=== PATIENT | male | born 1960 | race Caucasian/White ===

== ENCOUNTER 2021-06-11 09:13 | Inpatient (IN) | payer MEDICARE, OTHER ==
[~2021-06-11] VITALS: Ht 177.8 cm; Wt 94.2 kg
--- NOTE | 2021-06-11 09:18 | PHYS DOC ---
Past History Past Medical History: CAD, CHF, CVA, Diabetes, GERD Adult General Chief Complaint Chief Complaint: SHORTNESS OF BREATH HPI HPI Patient is a 60-year-old male presenting via EMS for shortness of breath and lethargy. Onset of symptoms was approximately 72 hours prior without any known inciting event, trauma, ingestion, sick contact or other exposure. Nothing known makes better or worse. Patient denies being in any pain. Patient reports he has just been more short of breath than usual, weak and fatigued. Symptoms have been constant since onset. Patient was found to be at 88% on room air by assisted staff which concerned them and so, they called EMS. On arrival, patient was found to be hemodynamically stable with 2 L oxygen via nasal cannula in place keeping O2 saturations greater than 90%. On arrival to our facility, patient reports he is weak but denies any fever, headache, vision changes, chest pain, ripping or tearing sensation in chest, abdominal pain, changes in motor or sensory or neuro function. He admits he is unvaccinated against COVID-19. He is at assisted for femur fracture that was diagnosed late 2019. He is on warfarin therapy for atrial fibrillation Review of Systems Review of Systems Fourteen body systems of review of systems have been reviewed. See HPI for pertinent positives and negative responses, other morgan all other systems are negative, non-pertinent or non-contributory Physical Exam Physical Exam Constitutional: Well developed, well nourished, no acute distress, non-toxic appearance. Does appear tired HENT: Normocephalic, atraumatic, bilateral external ears normal, oropharynx moist, no oral exudates, nose normal. Nasal cannula in place Eyes: PERRLA, EOMI, conjunctiva normal, no discharge. Neck: Normal range of motion, no tenderness, supple, no stridor. Cardiovascular: Heart rate regular, sinus rhythm, no murmurs rubs or gallops Lungs & Thorax: No overt respiratory distress but patient does have end expirato ry wheezes globally and rales present in bilateral lung bases Abdomen: Bowel sounds normal, soft, no tenderness, no masses, no pulsatile masses. Nonsurgical abdomen, no peritoneal signs Skin: Warm, dry, no erythema, no rash. Back: No tenderness, no CVA tenderness. Extremities: No tenderness, no cyanosis, no clubbing, ROM intact, no edema. Neurologic: Alert and oriented X 3, grossly normal motor & sensory function, no focal deficits noted. Psychologic: Affect normal, judgement normal, mood normal. Current Patient Data Vital Signs Vital Signs Date Time Temp Pulse Resp B/P (MAP) Pulse Ox O2 Delivery O2 Flow Rate FiO2 06/11/21 09:21 97.5 89 16 108/63 (78) 90 Room Air Vital Signs Date Time Temp Pulse Resp B/P (MAP) Pulse Ox O2 Delivery O2 Flow Rate FiO2 06/11/21 09:21 97.5 89 16 108/63 (78) 90 Room Air Lab Results Laboratory Tests Test 06/11/21 09:48 06/11/21 10:06 06/11/21 20:19 White Blood Count 10.2 x10^3/uL Red Blood Count 3.77 x10^6/uL Hemoglobin 9.3 g/dL Hematocrit 30.0 % Mean Corpuscular Volume 80 fL Mean Corpuscular Hemoglobin 25 pg Mean Corpuscular Hemoglobin Concent 31 g/dL Red Cell Distribution Width 17.3 % Platelet Count 321 x10^3/uL Neutrophils (%) (Auto) 80 % Lymphocytes (%) (Auto) 10 % Monocytes (%) (Auto) 7 % Eosinophils (%) (Auto) 2 % Basophils (%) (Auto) 1 % Neutrophils # (Auto) 8.2 x10^3uL Lymphocytes # (Auto) 1.0 x10^3/uL Monocytes # (Auto) 0.7 x10^3/uL Eosinophils # (Auto) 0.2 x10^3/uL Basophils # (Auto) 0.1 x10^3/uL Prothrombin Time 21.1 SEC Prothromb Time International Ratio 2.0 Activated Partial Thromboplast Time 38 SEC Sodium Level 137 mmol/L Potassium Level 4.5 mmol/L Chloride Level 101 mmol/L Carbon Dioxide Level 30 mmol/L Anion Gap 6 Blood Urea Nitrogen 24 mg/dL Creatinine 0.9 mg/dL Estimated GFR (Cockcroft-Gault) 86.1 Glucose Level 161 mg/dL Lactic Acid Level 1.8 mmol/L Calcium Level 8.8 mg/dL Troponin I Quantitative 0.068 ng/mL HW-Vvo-G-Type Natriuretic Peptide 1932 pg/mL Coronavirus (COVID-19)(PCR) Not detected Influenza Type A (Rapid) Negative Influenza Type B (Rapid) Negative SARS-CoV-2 Antigen (Rapid) Negative Glucose (Fingerstick) 176 mg/dL Current Medications Medications (Trade) Dose Ordered Sig/Kaleigh Route PRN Reason Start Time Stop Time Status Last Admin Dose Admin Albuterol/ Ipratropium (Duoneb) 3 ml 1X ONCE NEB 06/11/21 09:30 06/11/21 09:37 DC 06/11/21 09:56 Furosemide (Lasix) 40 mg 1X ONCE IVP 06/11/21 09:45 06/11/21 09:46 DC 06/11/21 09:55 Aspirin (Aspirin Chewable) 162 mg 1X ONCE PO 06/11/21 09:45 06/11/21 09:46 DC 06/11/21 09:56 Nitroglycerin (Nitrostat) 0.4 mg PRN Q5MIN PRN SL CHEST PAIN 06/11/21 09:45 06/11/21 14:23 DC EKG EKG EKG ordered and interpreted by myself at 0954 hrs. is sinus rhythm at 90 bpm, prolonged MD interval at 256 and QTC at 469, unremarkable intervals, no acute ischemic findings, no STEMI Radiology/Procedures Radiology/Procedures XR CHEST 1V History: Reason: shob / Spl. Instructions: / History: Comparison: None. Findings: Mild interstitial thickening with ill-defined opacities. Small left pleural effusion. Enlarged chronic size. Prior median sternotomy. No pneumothorax. Impression: 1. Mild interstitial thickening with ill-defined opacities, may represent pulmo nary edema or infection. 2. Small left pleural effusion. Electronically signed by: Emery Caro DO (06/11/2021 9:56 AM) [id number] Heart Score C/O Chest Pain: No HEART Score for Chest Pain: HEART Score for Chest Pain Response (Comments) Value History Moderately Suspicious 1 ECG Nonspecific Repolarizatio 1 Age >45 - < 65 1 Risk Factors >3 Risk Factors or Hx CAD 2 Total 5 Risk Factors: Risk Factors: DM, Current or recent (<one month) smoker, HTN, HLP, family history of CAD, obesity. Risk Scores: Risk Factors: DM, Current or recent (<one month) smoker, HTN, HLP, family history of CAD, obesity. Course & Med Decision Making Course & Med Decision Making Airway patent, breathing unlabored, IV access and vitals obtained concerning for hypoxia on room air History physical exam and comprehensive ER work-up concerning for acute exacerbation of CHF in a patient with heart failure reduced ejection fraction and last known EF 25% Patient symptoms improved with a total of 80 mg IV Lasix, sublingual nitro and repositioning in addition to supplemental nasal cannula oxygen Patient not fit for discharge back home, he agrees. I contacted hospitalist [facility] who accepted patient under his care for continued diuresis and cardiology consultation I have updated patient on discussion above and need for hospitalization and he was amenable. All questions and concerns addressed prior to hospitalization. Patient confirms he is full code which is consistent with assisted do cumentation Dragon Disclaimer Dragon Disclaimer This electronic medical record was generated, in whole or in part, using a voice recognition dictation system. Departure Departure: Impression: Primary Impression: Acute on chronic HFrEF (heart failure with reduced ejection fraction) Additional Impressions: Elevated troponin Acute respiratory failure with hypoxia Disposition: ADMITTED INPATIENT Admitting Physician: Brayden Mendoza Condition: STABLE Problem Qualifiers JESUS GORDON DO Jun 11, 2021 09:18
[2021-06-11] MEDS ORDERED: IPRATRPIUM/ALBUTEROL 0.5/2.5MG 3 ML NEBU. NEB ONE (09:30)
[2021-06-11] MEDS ORDERED: FUROSEMIDE 40 MG/4 ML VIAL IVP ONE ×2 (09:45→11:00)
[2021-06-11] MEDS ORDERED: NITROGLYCERIN SUBLINGUAL 0.4 MG BOTTLE OF 25. SL PRN ×2 (09:45→11:00)
[2021-06-11] MEDS ORDERED: ASPIRIN CHEWABLE 81 MG TABLET. PO ONE (09:45)
--- NOTE | 2021-06-11 09:58 | RAD ---
XR CHEST 1V History: Reason: shob / Spl. Instructions: / History: Comparison: None. Findings: Mild interstitial thickening with ill-defined opacities. Small left pleural effusion. Enlarged chroni c size. Prior median sternotomy. No pneumothorax. Impression: 1. Mild interstitial thickening with ill-defined opacities, may represent pulmonary edema or infecti on. 2. Small left pleural effusion. Electronically signed by: Emery Caro DO (06/11/2021 9:56 AM) [id number]
[2021-06-11 10:05] LABS: BASO # 0.1 x10^3/uL (0.0-0.2); BASO % 1 % (0-3); EOS # 0.2 x10^3/uL (0.0-0.7); EOS % 2 % (0-3); HEMOGLOBIN 9.3 g/dL (13.0-17.5); LYMPH % 10 % (24-48); MEAN CORPUSCULAR HEMOGLOBIN 25 pg (25-35); MEAN CORPUSCULAR HGB CONC 31 g/dL (31-37); MEAN CORPUSCULAR VOLUME 80 fL (79-100); MONO # 0.7 x10^3/uL (0.0-1.1); MONO % 7 % (0-9); NEUT # 8.2 x10^3uL (1.8-7.7); NEUT % 80 % (31-73); PLATELET COUNT 321 x10^3/uL (140-400); RED BLOOD COUNT 3.77 x10^6/uL (4.30-5.70); RED CELL DISTRIBUTION WIDTH 17.3 % (11.5-14.5); WHITE BLOOD COUNT 10.2 x10^3/uL (4.0-11.0)
[2021-06-11 10:16] LABS: CALCIUM 8.8 mg/dL (8.5-10.1); CREATININE 0.9 mg/dL (0.7-1.3); GFR 86.1; POTASSIUM 4.5 mmol/L (3.5-5.1)
--- NOTE | 2021-06-11 10:19 | EKG ---
[address] [address] Test Date: 2021-06-11 Test Time: 09:42:43 Pat Name: TAZ MADRID Department: Room: Gender: M [employer] Tech: KALEN : 1960 Requested By: JESUS GORDON Order Number: [id number] Reading MD: Baldomero Doss MD Measurements Intervals [place] Rate: 90 P: 42 DC: 256 QRS: 59 QRSD: 130 T: -18 QT: 380 QTc: 469 Interpretive Statements SINUS RHYTHM PROLONGED DC INTERVAL Electronically Signed On 06-11-2021 17:28:44 CDT by Baldomero Doss MD
[2021-06-11] MEDS ORDERED: ACETAMINOPHEN 325 MG TABLET PO PRN (11:00)
[2021-06-11 11:22] LABS: INFLUENZA A PATIENT NEGATIVE (NEGATIVE); INFLUENZA B PATIENT NEGATIVE (NEGATIVE)
--- NOTE | 2021-06-11 11:39 | HP ---
DATE OF SERVICE: 06/11/2021 ADMIT DATE: 06/11/2021 ATTENDING PHYSICIAN: Dr. Mendoza. CHIEF COMPLAINT: Shortness of breath. HISTORY OF PRESENT ILLNESS: The patient is a 60-year-old gentleman who is a current resident of a local [facility]. He has a 3-day history of increasing shortness of breath, lethargy, dyspnea with exertion and orthopnea, more short of breath than usual. He continues to smoke at the f[facility]. He had saturation 88%. EMS was called. On arrival to the ED, oxygen saturation improved with supplemental O2. Chest x-ray demonstrated cardiomegaly along with vascular congestion, Alice B lines and volume overload. He is unvaccinated against COVID-19. He had a femur fracture. He was diagnosed in late 2019. He is on warfarin therapy for permanent atrial fibrillation. PAST MEDICAL HISTORY: Significant for coronary artery disease with several-vessel bypass and graft in 2011. He has diabetes, gastroesophageal reflux disease and paroxysmal atrial fibrillation. CURRENT MEDICATIONS: Reviewed. He is on Coumadin and insulin. He is not on a diuretic. I am in the process of ascertaining the dosages of medications through the pharmacy. ALLERGIES: HE HAS ALLERGIES TO ADHESIVE TAPE, BACITRACIN, CIPRO, NEOMYCIN, POLYMYXIN, EXACT REACTION IS UNCLEAR. SOCIAL HISTORY: He is a smoker. He does not drink alcohol. FAMILY HISTORY: Noncontributory. REVIEW OF SYSTEMS: Significant for the orthopnea. No COVID exposure. Once again he is unvaccinated. He continues to smoke a pack of cigarettes a day despite admonition. All other systems reviewed and turned to be negative. PHYSICAL EXAMINATION: GENERAL: When I saw him, this is a pleasant, middle-aged gentleman. VITAL SIGNS: Initial vital signs in the ED showed a blood pressure 122/67, pulse is 92 and regular. He is afebrile. Oxygen saturation 97% on room air. HEENT: Head is without trauma. Pupils are reactive. Sclerae nonicteric. The oropharynx is clear. NECK: Supple. No bruits identified. LUNGS: Bibasilar rales. CARDIOVASCULAR: Showed regular heart tones. No gallops. ABDOMEN: Soft. EXTREMITIES: Show 2+ pitting edema extending all the way up to his thighs. NEUROLOGIC: Focally intact. Speech is fluent. He has no focal deficits. SKIN: Warm and dry. PERTINENT LABORATORY AND X-RAY STUDIES: Chest x-ray demonstrated postoperative changes, interstitial thickening, ill-defined opacities representing pulmonary edema. There is cardiomegaly and there is presence of Alice B lines. Admission hemoglobin was 9.3 g/dL with a white count of 10,200. Chemistry panel: Sodium 137 mEq, nonfasting blood sugar 161. The first troponin was 0.06. BNP was 1900. INR was therapeutic at 2.0. ASSESSMENT: 1. A 60-year-old gentleman with [id number] congestive heart failure. 2. History of known coronary artery disease. 3. Ischemic cardiomyopathy. 4. Paroxysmal atrial fibrillation. 5. Slight elevation of troponins due to stress demand ischemia. 6. Chronic anticoagulation. 7. Chronic obstructive pulmonary disease. 8. Type 2 diabetes. 9. Continued tobacco addiction. PLAN: 1. Admit to the Telemetry Unit. 2. Diuresis. Lasix has been ordered b.i.d. I estimate about 20 pounds of excess fluid. 3. Serial chemistries. 4. Daily weights. 5. Fluid restriction. 6. Glucose control. 7. Continue Coumadin as ordered. 8. Follow up troponin level in the morning. BALTA/ROSEMARY DR: Amadeo TID: [id number]
[2021-06-11 14:33] VITALS: BP 117/72
[2021-06-11] MEDS ORDERED: AMIT50TA PO (15:56)
[2021-06-11] MEDS ORDERED: ASPI-889 PO (15:56)
[2021-06-11] MEDS ORDERED: FUROSEMIDE 100 MG/10 ML VIAL IVP ONE (16:00)
[2021-06-11] MEDS ORDERED: PREG300C PO (17:15)
[2021-06-11] MEDS ORDERED: MIDO5TAB4 PO (17:15)
[2021-06-11] MEDS ORDERED: ASCO500C PO (17:15)
[2021-06-11] MEDS ORDERED: CYCL5TAB PO (17:15)
[2021-06-11] MEDS ORDERED: INSU100V SQ (17:15)
[2021-06-11] MEDS ORDERED: DULO60CA7 PO (17:15)
[2021-06-11] MEDS ORDERED: WARF3TAB50 PO (17:15)
[2021-06-11] MEDS ORDERED: DULA3PEN SQ (17:15)
[2021-06-11] MEDS ORDERED: WARF-31 PO (17:15)
[2021-06-11] MEDS ORDERED: OMEP40CA7 PO (17:15)
[2021-06-11] MEDS ORDERED: LIPITOR80 MG PO (17:15)
[2021-06-11] MEDS ORDERED: INSU200I4 SQ (17:15)
[2021-06-11] MEDS ORDERED: DEXT38GE2 PO (17:15)
[2021-06-11] MEDS ORDERED: AMIN30LI2 PO (17:15)
[2021-06-11] MEDS ORDERED: FERR-36 PO (17:15)
[2021-06-11] MEDS ORDERED: METO25TA2 PO (17:15)
[2021-06-11] MEDS ORDERED: CANA300T PO (17:15)
[2021-06-11] MEDS ORDERED: OXYC5TAB88 PO (17:15)
[2021-06-11] MEDS ORDERED: MELA3TAB4 PO (17:15)
[2021-06-11] MEDS ORDERED: ISOS30TA19 PO (17:15)
[2021-06-11 19:00] VITALS: BP 130/76
[2021-06-11] MEDS ORDERED: CYCLOBENZAPRINE 10 MG TABLET. PO PRN (20:30)
[2021-06-11] MEDS: METOPROLOL SUCC 24HR ER 25 MG TAB.ER.24H. PO SCH (20:46)
[2021-06-11] MEDS: POTASSIUM CHLORIDE 20 MEQ TABLET.ER. PO SCH (20:47)
[2021-06-11] MEDS: ATORVASTATIN CALCIUM 20 MG TABLET PO SCH (20:47)
[2021-06-11] MEDS: MELATONIN 3 MG TABLET PO SCH (20:47)
[2021-06-11] MEDS: DULoxetine HCL 60 MG CAPSULE.DR PO SCH (20:47)
[2021-06-11] MEDS: PREGABALIN 75 MG CAPSULE PO SCH (20:47)
[2021-06-11] MEDS ORDERED: NON FORMULARY ITEM (Amino Acids/Protein Hydrolys (Pro-Stat Liquid) 30 ML) PO SCH (21:00)
[2021-06-11] MEDS: oxyCODONE IR 5 MG TABLET PO PRN (22:56)
[2021-06-11 23:00] VITALS: BP 101/62
[2021-06-11 23:46] VITALS: BP 104/65
[2021-06-12 05:00] VITALS: BP 123/74
[2021-06-12 07:22] LABS: CALCIUM 9.1 mg/dL (8.5-10.1); CREATININE 0.9 mg/dL (0.7-1.3); GFR 86.1; POTASSIUM 4.2 mmol/L (3.5-5.1)
[2021-06-12] MEDS: INSULIN LISPRO 300 UNITS/3 ML VIAL. SQ SCH ×3 (08:00→17:00)
--- NOTE | 2021-06-12 08:20 | PN ---
DATE: 06/12/2021 ATTENDING PHYSICIAN: Dr. Mendoza. SUBJECTIVE: Breathing better. No new complaints. He denied any chest pain or palpitations. OBJECTIVE FINDINGS: VITAL SIGNS: Blood pressure this morning is 123/74, pulse is 90 and regular, oxygen saturation 97% on 3 liters. He is afebrile. HEENT: Head is without trauma. Pupils are reactive. Sclerae nonicteric. Oropharynx clear. NECK: Supple. Venous pressure distended at 45 degrees. LUNGS: Bibasilar crackles persist. CARDIOVASCULAR: Showed regular heart tones. No gallops. ABDOMEN: Soft. EXTREMITIES: Still show 2+ edema. NEUROLOGIC: Function focally intact. LABORATORY DATA: Pertinent laboratory studies, his serology was negative for coronavirus. Creatinine this morning is 0.9 mg/dL, potassium is 4.2 mEq. Cardiac enzymes, slight elevation of troponin due to stress demand ischemia. It was measured at 0.07. Nonfasting blood sugar 123 mg/dL. ASSESSMENT: 1. A 60-year-old gentleman with acute on chronic systolic congestive heart failure. 2. Ischemic cardiomyopathy. 3. Known coronary artery disease. 4. Paroxysmal atrial fibrillation. 5. Slight elevation of troponin due to stress demand ischemia. 6. Chronic anticoagulation. 7. Chronic obstructive pulmonary disease. 8. Type 2 diabetes. 9. Continued tobacco abuse. PLAN: 1. Continue diuresis. Lasix 80 mg twice a day. 2. Daily weights. 3. Fluid restriction. 4. Serial chemistries. 5. Glucose control. 6. Continue Coumadin as prescribed. DEDE DR: Amadeo TID: [id number] CC: Dr. Madelaine Grubbs
[2021-06-12] MEDS: ISOSORBIDE DINITRATE 10 MG TABLET. PO SCH (08:35)
[2021-06-12] MEDS: FERROUS SULFATE 325 MG TABLET. PO SCH (08:38)
[2021-06-12] MEDS: PANTOPRAZOLE 40 MG TABLET. PO SCH (08:38)
[2021-06-12] MEDS: FUROSEMIDE 40 MG/4 ML VIAL IVP SCH ×2 (08:38→14:59)
[2021-06-12] MEDS: PREGABALIN 75 MG CAPSULE PO SCH ×2 (08:40→20:02)
[2021-06-12] MEDS: ASCORBIC ACID 500 MG TABLET PO SCH (08:40)
[2021-06-12] MEDS: METOPROLOL SUCC 24HR ER 25 MG TAB.ER.24H. PO SCH ×2 (08:40→20:02)
[2021-06-12] MEDS: oxyCODONE IR 5 MG TABLET PO PRN (08:41)
[2021-06-12] MEDS: POTASSIUM CHLORIDE 20 MEQ TABLET.ER. PO SCH ×2 (08:41→20:03)
[2021-06-12] MEDS ORDERED: NON FORMULARY ITEM (Canagliflozin (Invokana) 1 TAB) PO SCH (09:00)
[2021-06-12 10:38] VITALS: BP 109/68
[2021-06-12 14:52] VITALS: BP 123/86
[2021-06-12] MEDS ORDERED: WARFARIN 5 MG TABLET. PO SCH (16:00)
[2021-06-12 19:26] VITALS: BP 107/68
[2021-06-12] MEDS: MELATONIN 3 MG TABLET PO SCH (20:02)
[2021-06-12] MEDS: ATORVASTATIN CALCIUM 20 MG TABLET PO SCH (20:02)
[2021-06-12] MEDS: DULoxetine HCL 60 MG CAPSULE.DR PO SCH (20:03)
[2021-06-12 23:13] VITALS: BP 116/78
[2021-06-13 05:00] VITALS: BP 143/86
[2021-06-13 07:01] LABS: CALCIUM 9.2 mg/dL (8.5-10.1); CREATININE 0.9 mg/dL (0.7-1.3); GFR 86.1; POTASSIUM 4.3 mmol/L (3.5-5.1)
[2021-06-13] MEDS: INSULIN LISPRO 300 UNITS/3 ML VIAL. SQ SCH (08:00)
--- NOTE | 2021-06-13 08:34 | DS ---
DATE OF DISCHARGE: 06/13/2021 ATTENDING PHYSICIAN: Brayden Mendoza MD FINAL DISCHARGE DIAGNOSES: 1. Acute exacerbation on chronic congestive heart failure, systolic. 2. Ischemic cardiomyopathy. 3. Known coronary artery disease. 4. Paroxysmal atrial fibrillation. 5. Chronic anticoagulation. 6. Slight elevation of troponin due to stress demand ischemia. 7. Chronic obstructive pulmonary disease. 8. Type 2 diabetes mellitus, insulin-dependent. 9. Continued tobacco abuse. HISTORY AND PHYSICAL: The patient is a 60-year-old gentleman admitted with increasing shortness of breath, volume congestion, weight is up at least 10 pounds from previously. His workup showed that he was in congestive heart failure. He has known coronary artery disease with ischemic cardiomyopathy and decreased ejection fraction. PHYSICAL EXAMINATION: Please see the dictated note. PERTINENT LABORATORY AND X-RAY STUDIES: Admission hemoglobin was 9.3 g/dL, white count 10,200. INR therapeutic at 2.0. Electrolytes were drawn daily and prior to discharge his creatinine stable at 0.9 mg/dL, potassium 4.3 mEq, and sodium 140. Nonfasting blood sugar 100. COURSE IN THE HOSPITAL: The patient was admitted. He was started on aggressive diuresis with Lasix b.i.d. along with potassium supplementation, daily weights, fluid restriction and the serial chemistry. We diurese 17 pounds off of him since admission and he felt much better. He was less bloated and he had no trouble with breathing. We took supplemental oxygen off and he had adequate saturations. On the third hospital day, he is discharged back to [facility] for continuation of his rehabilitation. His discharge meds are basically unchanged except for the addition of Lasix 80 mg p.o. daily in the morning and K-Dur 20 mEq daily. He will continue his vitamin C, Lipitor, Invokana daily, cyclobenzaprine p.r.n., Trulicity injections, Cymbalta, ferrous sulfate, Lantus and regular insulin, isosorbide mononitrate daily, melatonin, metoprolol 25 mg b.i.d., omeprazole, oxycodone p.r.n. pain and Coumadin 4.5 mg alternating with 5 mg every other day. For now, we held his amitriptyline, aspirin and amino acid. I also recommended daily weights with monitoring of weights to keep within a narrow range. He remains a FULL CODE. The patient was then discharged from our hospital in stable condition with explicit drug and followup care. Total discharge time spent [address]: Amadeo TID: [id number] CC: Madelaine Grubbs MD
[2021-06-13] MEDS: ISOSORBIDE DINITRATE 10 MG TABLET. PO SCH (08:35)
[2021-06-13] MEDS: FUROSEMIDE 40 MG/4 ML VIAL IVP SCH (08:35)
[2021-06-13 08:36] VITALS: BP 143/86
[2021-06-13] MEDS: PANTOPRAZOLE 40 MG TABLET. PO SCH (08:36)
[2021-06-13] MEDS: POTASSIUM CHLORIDE 20 MEQ TABLET.ER. PO SCH (08:36)
[2021-06-13] MEDS: METOPROLOL SUCC 24HR ER 25 MG TAB.ER.24H. PO SCH (08:36)
[2021-06-13] MEDS: ASCORBIC ACID 500 MG TABLET PO SCH (08:36)
[2021-06-13] MEDS: FERROUS SULFATE 325 MG TABLET. PO SCH (08:36)
[2021-06-13] MEDS: PREGABALIN 75 MG CAPSULE PO SCH (08:36)
== END 2021-06-13 11:40 | DRG 291 ==
LOC: ER 09:13 → 1 SOUTH 10:47
PROVIDERS: ADMIT Hospitalist; ATTEND Hospitalist
DX: I50.23 Acute on chronic systolic (congestive) heart failure (principal); J96.01 Acute respiratory failure with hypoxia; I48.21 Permanent atrial fibrillation; I25.10 Atherosclerotic heart disease of native coronary artery without angina pectoris; E11.9 Type 2 diabetes mellitus without complications; K21.9 Gastro-esophageal reflux disease without esophagitis; F17.200 Nicotine dependence, unspecified, uncomplicated; Z20.822 Contact with and (suspected) exposure to COVID-19; J44.9 Chronic obstructive pulmonary disease, unspecified; I25.5 Ischemic cardiomyopathy; Z86.73 Personal history of transient ischemic attack (TIA), and cerebral infarction without residual deficits; Z79.899 Other long term (current) drug therapy; Z79.4 Long term (current) use of insulin; Z79.01 Long term (current) use of anticoagulants; Z88.1 Allergy status to other antibiotic agents; Z88.8 Allergy status to other drugs, medicaments and biological substances
CPT/HCPCS: 36415; 71045; 80048; 82947; 83605; 83880; 84484; 85025; 85610; 85730; 87040; 87426; 87804; 93005; 94640; 96374; J1815; J1940; U0003; 97110; 97530; 99285-25